=== PATIENT | female | born 1990 | race Caucasian/White ===

== ENCOUNTER 2018-05-03 16:48 | Inpatient (IN) | payer MEDICAID ==
[2018-05-03] MEDS ORDERED: Metoclopramide 10 MG/2 ML SDV IVPUSH ONE (16:59)
[2018-05-03] MEDS ORDERED: Citric Acid/Sodium Citrate Solution 30 ML Cup PO ONE (16:59)
[2018-05-03] MEDS ORDERED: Sodium Chloride 0.9% 10 ML Syringe FLUSH PRN (16:59)
[2018-05-03] MEDS ORDERED: ceFAZolin 2 GM in Premix Bag 1 BAG IV ONE (16:59)
[2018-05-03] MEDS ORDERED: Nalbuphine 20 MG/ML 1 ML Syringe IVPUSH PRN (16:59)
[2018-05-03] MEDS ORDERED: Oxytocin/Lactated Ringers 10 UNIT/1,000 ML BAG IV SCH (17:00)
[2018-05-03] MEDS ORDERED: Lactated Ringers 1,000 ML IV SCH (17:00)
--- NOTE | 2018-05-03 17:46 | PCM.PREANE ---
Preanesthetic Assessment - Anesthesia/Transfusion/Family Hx Anesthesia History: Prior Anesthesia Without Reaction Family History of Anesthesia Reaction: No Transfusion History: No Prior Transfusion(s) Intubation History: Unknown - Review of Systems General: No Symptoms Pulmonary: No Symptoms Cardiovascular: No Symptoms Gastrointestinal: No Symptoms Neurological: No Symptoms Other: Reports: None - Physical Assessment NPO Status Date: 05/03/18 NPO Status Time: 12:00 Pulse: 89 O2 Sat by Pulse Oximetry: 98 Respiratory Rate: 14 Blood Pressure: 114/73 Temperature: 37.3 C Vital Signs: Last Vital Signs Temp 37.3 C 05/03/18 16:59 Pulse 89 05/03/18 16:59 Resp 14 05/03/18 16:59 BP 114/73 05/03/18 16:59 Pulse Ox 98 05/03/18 16:59 Height: 1.6 m Weight: 65.317 kg ASA Class: 2E Mental Status: Alert & Oriented x3 Airway Class: Mallampati = 2 Dentition: Reports: Normal Dentition, Caries Thyro-Mental Finger Breadths: 3 Mouth Opening Finger Breadths: 3 ROM/Head Extension: Full Lungs: Clear to Auscultation, Normal Respiratory Effort Cardiovascular: Regular Rate, Regular Rhythm, No Murmurs - Lab Values: Laboratory Last Values WBC 8.32 K/mm3 (3.98-10.04) 05/03/18 17:21 RBC 4.32 M/mm3 (3.98-5.22) 05/03/18 17:21 Hgb 11.7 gm/L (11.2-15.7) 05/03/18 17:21 Hct 35.7 % (34.1-44.9) 05/03/18 17:21 MCV 82.6 fl (79.4-94.8) 05/03/18 17:21 MCH 27.1 pg (25.6-32.2) 05/03/18 17:21 MCHC 32.8 g/dl (32.2-35.5) 05/03/18 17:21 RDW Std Deviation 39.3 fL (36.4-46.3) 05/03/18 17:21 Plt Count 208 K/mm3 (182-369) 05/03/18 17:21 MPV 11.9 fl (9.4-12.3) 05/03/18 17:21 Neut % (Auto) 55.1 % (34.0-71.1) 05/03/18 17:21 Lymph % (Auto) 36.1 % (19.3-51.7) 05/03/18 17:21 [place] % (Auto) 8.1 % (4.7-12.5) 05/03/18 17:21 Eos % (Auto) 0.5 (0.7-5.8) L 05/03/18 17:21 Baso % (Auto) 0.1 % (0.1-1.2) 05/03/18 17:21 Neut # (Auto) 4.59 K/mm3 (1.56-6.13) 05/03/18 17:21 Lymph # (Auto) 3.00 K/mm3 (1.18-3.74) 05/03/18 17:21 [place] # (Auto) 0.67 K/mm3 (0.24-0.36) H 05/03/18 17:21 Eos # (Auto) 0.04 K/mm3 (0.04-0.36) 05/03/18 17:21 Baso # (Auto) 0.01 K/mm3 (0.01-0.08) 05/03/18 17:21 Above labs reviewed and noted and within acceptable ranges to proceed with c section. 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: - SUBSTANCE USE Smoking Status *Q: Never Smoker Second Hand Smoke Exposure: No Recreational Drug Use History: No - HOME MEDS Home Medications: Home Meds PNV95/Ferrous Fumarate/FA [ Multivitamins] 1 each PO DAILY 04/26/15 [ History] - CURRENT (IN HOUSE) MEDS Current Meds: Current Medications Lactated Ringer's (Ringers, Lactated) 1,000 mls @ 125 mls/hr IV ASDIRECTED [facility]ITA Last Admin: 05/03/18 17:21 Dose: 125 mls/hr Oxytocin/Lactated Ringer's (Pitocin In Lr 10 Units/1,000 Ml) 10 unit in 1,000 mls @ 100 mls/hr IV ASDIRECTED [facility] Nalbuphine HCl (Nubain) 10 mg IVPUSH Q2H PRN PRN Reason: pain Sodium Chloride (Saline Flush) 10 ml FLUSH ASDIRECTED PRN PRN Reason: Keep Vein Open Discontinued Medications Citric Acid/Sodium Citrate (Bicitra Solution) 30 ml PO ONETIME ONE Stop: 05/03/18 17:00 Cefazolin Sodium/Dextrose 2 gm (/ Premix) 50 mls @ 100 mls/hr IV ONETIME ONE Stop: 05/03/18 17:28 Metoclopramide HCl (Reglan) 10 mg IVPUSH ONETIME ONE Stop: 05/03/18 17:00
--- NOTE | 2018-05-03 17:55 | PCM.LDHP ---
L&D History of Present Illness - General Date of Service: 05/03/18 Admit Problem/Dx: Patient Status Order with Admit Dx/Problem 05/03/18 16:59 Patient Status [ADT] Routine Admission Diagnosis/Problem Admission Diagnosis/Problem Source of Information: Patient History Limitations: Reports: No Limitations - History of Present Illness Introduction:: 27 y/o at 38 0/7 wks presents for for IUGR. Was seen in clinic today with US for low fundal height. This showed a baby with overall EFW at 14%, but AC at the 9%. Given this finding recommendations were to proceed with delivery. She elected for RLTCS. She is otherwise doing well. 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: : 2 Para: 1 LMP (Approximate): - Past Surgical History Female Surgical History: Reports: Section Social & Family History - Family History Family Medical History: Noncontributory - Tobacco Use Smoking Status *Q: Never Smoker Second Hand Smoke Exposure: No - Caffeine Use Caffeine Use: Reports: Coffee Other Caffeine Use: daily - Alcohol Use Alcohol Use History: No - Recreational Drug Use Recreational Drug Use: No - Living Situation & Occupation Living situation: Reports: H&P Review of Systems - Review of Systems: Review Of Systems: See Below General: Reports: No Symptoms Pulmonary: Reports: No Symptoms Cardiovascular: Reports: No Symptoms Gastrointestinal: Reports: No Symptoms Genitourinary: Reports: No Symptoms Musculoskeletal: Reports: No Symptoms Psychiatric: Reports: No Symptoms L&D Exam - Exam Exam: See Below - Vital Signs Vital Signs: Last Vital Signs Temp 37.3 C 05/03/18 17:46 Pulse 89 05/03/18 17:46 Resp 14 05/03/18 17:46 BP 114/73 05/03/18 17:46 Pulse Ox 98 05/03/18 17:46 Weight: 65.317 kg - OB Specific Contraction Intensity: Irritability Movement: Active Heart Tones: Present Heart Tones per Min: 125 Heart Rate (FHR) Variability: Moderate (6-25 bmp) Presentation: Vertex - Toth Score Toth Score Cervix Position: Midposition Toth Score Consistency: Soft Toth Score Effacement: 51-70% Toth Score Dilation: 1-2 cm Toth Score Infant's Station: -2 Toth Score Total: 7 - Exam General: Alert, Oriented, Cooperative Lungs: Clear to Auscultation, Normal Respiratory Effort Cardiovascular: Regular Rate, Regular Rhythm GI/Abdominal Exam: Soft, Non-Tender Genitourinary: Normal external exam Extremities: Normal Inspection Skin: Warm, Dry, Intact - Patient Data Lab Results Last 24 hrs: Laboratory Results - last 24 hr 05/03/18 Range/Units 17:21 WBC 8.32 (3.98-10.04) K/mm3 RBC 4.32 (3.98-5.22) M/mm3 Hgb 11.7 (11.2-15.7) gm/L Hct 35.7 (34.1-44.9) % MCV 82.6 (79.4-94.8) fl MCH 27.1 (25.6-32.2) pg MCHC 32.8 (32.2-35.5) g/dl RDW Std Deviation 39.3 (36.4-46.3) fL Plt Count 208 (182-369) K/mm3 MPV 11.9 (9.4-12.3) fl Neut % (Auto) 55.1 (34.0-71.1) % Lymph % (Auto) 36.1 (19.3-51.7) % [place] % (Auto) 8.1 (4.7-12.5) % Eos % (Auto) 0.5 L (0.7-5.8) Baso % (Auto) 0.1 (0.1-1.2) % Neut # (Auto) 4.59 (1.56-6.13) K/mm3 Lymph # (Auto) 3.00 (1.18-3.74) K/mm3 [place] # (Auto) 0.67 H (0.24-0.36) K/mm3 Eos # (Auto) 0.04 (0.04-0.36) K/mm3 Baso # (Auto) 0.01 (0.01-0.08) K/mm3 Result Diagrams: 05/03/18 17:21 - Problem List (1) 38 weeks gestation of SNOMED Code(s): 16157628 ICD Code: Z3A.38 - 38 WEEKS GESTATION OF Status: Acute Current Visit: Yes (2) History of SNOMED Code(s): 918908478 ICD Code: Z98.891 - HISTORY OF UTERINE SCAR FROM PREVIOUS SURGERY Status: Acute Current Visit: Yes (3) Rh negative state in antepartum period SNOMED Code(s): 505064603 ICD Code: O09.899 - SUPERVISION OF OTHER HIGH RISK PREGNANCIES, UNSP TRIMESTER; Z67.91 - UNSPECIFIED BLOOD TYPE, RH NEGATIVE Status: Acute Current Visit: Yes (4) IUGR (intrauterine growth restriction) SNOMED Code(s): 98034047 ICD Code: RJA0962 - Status: Acute Current Visit: Yes Problem List Initiated/Reviewed/Updated: Yes Orders Last 24hrs: Active Orders 24 hr Category Date Time Status Patient Status [ADT] Routine ADT 05/03/18 16:59 Active Communication Order [RC] ROUTINE Care 05/03/18 16:59 Active Heart Tones [RC] PER UNIT ROUTINE Care 05/03/18 16:59 Active Non Stress Test [RC] PER UNIT ROUTINE Care 05/03/18 16:59 Active Peripheral IV Care [RC] . DIRECTED Care 05/03/18 17:00 Active Procedure Site Prep Instruct [RC] ASDIRECTED Care 05/03/18 16:59 Active Verify Patient Consent Obtain [RC] PER UNIT ROUTINE Care 05/03/18 16:59 Active Vital Signs [RC] PFP Care 05/03/18 16:59 Active RAPID PLASMA REAGIN,RPR [CHEM] Routine Lab 05/03/18 17:21 Received TYPE AND SCREEN [BBK] Stat Lab 05/03/18 17:21 Received Lactated Ringers [Ringers, Lactated] 1,000 ml Med 05/03/18 17:00 Active IV ASDIRECTED Nalbuphine [Nubain] Med 05/03/18 16:59 Active 10 mg IVPUSH Q2H PRN Oxytocin/Lactated Ringers [Pitocin in LR 10 Units/1,000 Med 05/03/18 17:00 Active ML] 10 unit in 1,000 ml IV ASDIRECTED Sodium Chloride 0.9% [Saline Flush] Med 05/03/18 16:59 Active 10 ml FLUSH ASDIRECTED PRN Peripheral IV Insertion Adult [OM.PC] Routine Oth 05/03/18 16:59 Ordered Schedule Procedure [COMM] Per Unit Routine Oth 05/03/18 16:59 Ordered Schedule Procedure [COMM] Routine Ot 05/03/18 17:47 Ordered Resuscitation Status Routine Resus Stat 05/03/18 16:59 Ordered Medication Orders Lactated Ringer's (Ringers, Lactated) 1,000 mls @ 125 mls/hr IV ASDIRECTED [facility] Last Admin: 05/03/18 17:21 Dose: 125 mls/hr Oxytocin/Lactated Ringer's (Pitocin In Lr 10 Units/1,000 Ml) 10 unit in 1,000 mls @ 100 mls/hr IV ASDIRECTED [facility] Nalbuphine HCl (Nubain) 10 mg IVPUSH Q2H PRN PRN Reason: pain Sodium Chloride (Saline Flush) 10 ml FLUSH ASDIRECTED PRN PRN Reason: Keep Vein Open Assessment/Plan Comment:: 27 y/o at 38 0/7 wks who presents for RLTCS after new diagnosis of IUGR * Labs to be done * Joana MARIE * Consent reviewed and signed * Pediatric and anesthesia made aware
[2018-05-03] MEDS ORDERED: Lactated Ringers 2,000 ML ONE (17:59)
[2018-05-03] MEDS ORDERED: Ondansetron 4 MG/2 ML SDV ONE (17:59)
[2018-05-03] MEDS ORDERED: Lidocaine 1% 4 ML ONE (17:59)
[2018-05-03] MEDS ORDERED: ceFAZolin 1 GM Vial ONE (17:59)
[2018-05-03] MEDS ORDERED: Oxytocin 10 Units/1 ML SDV ONE (17:59)
[2018-05-03] MEDS ORDERED: Ketorolac 30 MG/ML SDV ONE (17:59)
[2018-05-03] MEDS ORDERED: Phenylephrine 1% 10 MG/ML SDV ONE (17:59)
[2018-05-03] MEDS ORDERED: Bupivacaine 0.75%/D5W 2 ML Amp ONE (17:59)
[2018-05-03] MEDS ORDERED: Morphine PF 10 MG/10 ML SDV ONE (17:59)
[2018-05-03] MEDS ORDERED: Meperidine 50 MG/ML Vial IVPUSH PRN (19:12)
[2018-05-03] MEDS ORDERED: diphenhydrAMINE 50 MG/ML SDV IVPUSH PRN ×2 (19:12→21:24)
[2018-05-03] MEDS ORDERED: Ondansetron 4 MG/2 ML SDV IVPUSH PRN (19:12)
[2018-05-03] MEDS ORDERED: ePHEDrine 50 MG/ML SDV IVPUSH PRN (19:12)
[2018-05-03] MEDS ORDERED: fentaNYL 100 MCG/2 ML SDV IVPUSH PRN (19:12)
[2018-05-03] MEDS ORDERED: HYDROmorphone 0.5 MG/0.5 ML Syringe IVPUSH PRN (19:13)
[2018-05-03] MEDS ORDERED: Phenylephrine 1 MG in Sodium Chloride 0.9% 10 ML IV SCH (19:15)
[2018-05-03] MEDS ORDERED: ePHEDrine/Normal Saline 25 MG/5 ML Syringe ONE (19:40)
--- NOTE | 2018-05-03 20:08 | PCM.POSTAN ---
POST ANESTHESIA ASSESSMENT - MENTAL STATUS Mental Status: Alert - VITAL SIGNS Pulse Rate: 62 SaO2: 98 Resp Rate: 18 Blood Pressure: 108/60 Temperature: 36.3 C - RESPIRATORY Respiratory Status: Respiratory Rate WNL, Airway Patent, O2 Saturation Stable - CARDIOVASCULAR CV Status: Pulse Rate WNL, Blood Pressure Stable - GASTROINTESTINAL GI Status: No Symptoms - POST OP HYDRATION Hydration Status: Adequate & Stable
--- NOTE | 2018-05-03 20:08 | PCM.OPNOTE ---
- General Post-Op/Procedure Note Date of Surgery/Procedure: 05/03/18 Operative Procedure(s): Repeat low transverse Findings: Moderate scar tissue between the rectus and the fascia. Small amount of scar tissue between the bladder and RICH. Normal appearance of the uterus, fallopian tubes, and ovaries. Baby girl in a vertex presentation with APGARS of 8 & 9 and weight of 5 lbs 7 oz. Pre Op Diagnosis: 38 weeks of gestation. History of . Concerns for IUGR on ultrasound Post-Op Diagnosis: Same Anesthesia Technique: Spinal Primary Surgeon: Halie Webb Secondary Surgeon: Magalie Abebe Anesthesia Provider: Annalise Olson Reason Plant Director Was Necessary: Speed, safety of case Pathology: Cord blood collected. Placenta discarded Fluid Replacement, Intraop: 1,200 Output, Urine Amount: 100 EBL in mLs: 700 Complications: None Condition: Good Free Text/Narrative:: The risks, benefits, indications, potential complications, and alternatives were explained to the patient and informed consent obtained. After induction of anesthesia, the patient was placed in a supine position and then draped and prepped in the usual sterile manner. A Pfannenstiel incision was made and carried down through the subcutaneous tissue to the fascia. Fascial incision was made and extended transversely. The fascia was from the underlying rectus tissue superiorly and inferiorly. The peritoneum was identified and entered. Peritoneal incision was extended longitudinally. The utero-vesical peritoneal reflection was incised transversely and the bladder flap was bluntly freed from the lower uterine segment. A low transverse uterine incision was made sharply with a scalpel and extended bluntly in a cephalocaudad direction. A baby girl was delivered from a vertex presentation with APGARS as above. After the umbilical cord was clamped and cut cord blood was obtained for evaluation. The placenta was removed intact and appeared normal. The uterus was exteriorized and cleared of clots. The uterine outline, tubes and ovaries appeared normal. The uterine incision was closed with running locked sutures of 0 Vicryl. Hemostasis was obtained with a second imbricating layer of 0 vicryl. The uterus was then placed back into the abdomen. The infracolic gutters were cleared of blood clots. The fascia was then reapproximated with running sutures of 0 Vicryl. The sucutaneous tissue was irrigated with sterile warm normal saline, hemostasis obtained with cautery. This layer was also closed with a running 0 vicryl suture. The skin was reapproximated with running Subcuticular 4-0 monocryl sutures. Instrument, sponge, and needle counts were correct prior the abdominal closure and at the conclusion of the case.
[2018-05-03] MEDS ORDERED: Ondansetron 4 MG/2 ML SDV IV PRN (21:24)
[2018-05-03] MEDS ORDERED: Lanolin 100% Cream 7 GM Tube TOP PRN (21:24)
[2018-05-03] MEDS ORDERED: Dextrose 5%-Lactated Ringers 1,000 ML IV SCH (21:24)
[2018-05-03] MEDS ORDERED: Docusate Sodium 100 MG Cap PO PRN (21:24)
[2018-05-04] MEDS: Ketorolac 30 MG/ML SDV IVPUSH SCH ×3 (01:29→13:23)
--- NOTE | 2018-05-04 06:49 | PCM.PNPP ---
- General Info Date of Service: 05/04/18 Functional Status: Reports: Pain Controlled, Tolerating Diet, Ambulating, Urinating - Review of Systems General: Reports: No Symptoms Cardiovascular: Reports: No Symptoms Gastrointestinal: Reports: No Symptoms Genitourinary: Reports: No Symptoms Musculoskeletal: Reports: No Symptoms - Patient Data Vital Signs - Most Recent: Last Vital Signs Temp 36.6 C 05/04/18 03:39 Pulse 63 05/04/18 03:39 Resp 14 05/04/18 06:40 BP 120/62 05/04/18 03:39 Pulse Ox 99 05/04/18 06:40 Weight - Most Recent: 65.317 kg I&O - Last 24 Hours: Intake & Output 05/03/18 05/03/18 05/04/18 14:59 22:59 06:59 Intake Total 5525 1000 Output Total 300 850 Balance 5225 150 Lab Results - Last 24 Hours: Laboratory Results - last 24 hr 05/03/18 05/03/18 Range/Units 17:21 17:21 WBC 8.32 (3.98-10.04) K/mm3 RBC 4.32 (3.98-5.22) M/mm3 Hgb 11.7 (11.2-15.7) gm/L Hct 35.7 (34.1-44.9) % MCV 82.6 (79.4-94.8) fl MCH 27.1 (25.6-32.2) pg MCHC 32.8 (32.2-35.5) g/dl RDW Std Deviation 39.3 (36.4-46.3) fL Plt Count 208 (182-369) K/mm3 MPV 11.9 (9.4-12.3) fl Neut % (Auto) 55.1 (34.0-71.1) % Lymph % (Auto) 36.1 (19.3-51.7) % [place] % (Auto) 8.1 (4.7-12.5) % Eos % (Auto) 0.5 L (0.7-5.8) Baso % (Auto) 0.1 (0.1-1.2) % Neut # (Auto) 4.59 (1.56-6.13) K/mm3 Lymph # (Auto) 3.00 (1.18-3.74) K/mm3 [place] # (Auto) 0.67 H (0.24-0.36) K/mm3 Eos # (Auto) 0.04 (0.04-0.36) K/mm3 Baso # (Auto) 0.01 (0.01-0.08) K/mm3 Blood Type A NEGATIVE Gel Antibody Screen Positive Med Orders - Current: Current Medications Diphenhydramine HCl (Benadryl) 25 mg IVPUSH Q6H PRN PRN Reason: pruritis Last Admin: 05/03/18 22:28 Dose: 25 mg Diphenhydramine HCl (Benadryl) 25 mg IVPUSH Q6H PRN PRN Reason: Itching or Nausea Docusate Sodium (Colace) 100 mg PO Q12H PRN PRN Reason: Constipation Emollient Ointment (Lansinoh Hpa) 0 gm TOP ASDIRECTED PRN PRN Reason: Sore Nipples Ephedrine Sulfate (Ephedrine Sulfate) 5 mg IVPUSH ASDIRECTED PRN PRN Reason: Hypotension Fentanyl (Sublimaze) 50 mcg IVPUSH Q5M PRN PRN Reason: Pain Hydromorphone HCl (Dilaudid) 0.5 mg IVPUSH ONETIME PRN PRN Reason: Pain Phenylephrine HCl 1 mg/ Sodium (Chloride) 10.1 mls @ 1 mls/sec IV TITRATE MARQUITA; Protocol Ibuprofen (Motrin) 600 mg PO Q6H PRN PRN Reason: mild pain or fever Ketorolac Tromethamine (Toradol) 30 mg IVPUSH Q6H [facility] Stop: 05/04/18 13:31 Last Admin: 05/04/18 01:29 Dose: 30 mg Meperidine HCl (Meperidine) 12.5 mg IVPUSH ONETIME PRN PRN Reason: shivering Ondansetron HCl (Zofran) 4 mg IVPUSH ONETIME PRN PRN Reason: Nausea/Vomiting Ondansetron HCl (Zofran) 4 mg IV Q8H PRN PRN Reason: Nausea/Vomiting Oxycodone/Acetaminophen (Percocet 325-5 Mg) 2 tab PO Q4H PRN PRN Reason: Pain (moderate 4-6) Discontinued Medications Citric Acid/Sodium Citrate (Bicitra Solution) 30 ml PO ONETIME ONE Stop: 05/03/18 17:00 Last Admin: 05/03/18 18:20 Dose: 30 ml Cefazolin Sodium/Dextrose 2 gm (/ Premix) 50 mls @ 100 mls/hr IV ONETIME ONE Stop: 05/03/18 17:28 Last Admin: 05/03/18 22:07 Dose: Not Given Lactated Ringer's (Ringers, Lactated) 1,000 mls @ 125 mls/hr IV ASDIRECTED [facility] Last Admin: 05/03/18 17:21 Dose: 125 mls/hr Oxytocin/Lactated Ringer's (Pitocin In Lr 10 Units/1,000 Ml) 10 unit in 1,000 mls @ 100 mls/hr IV ASDIRECTED [facility] Dextrose/Lactated Ringer's (Dextrose 5%-Lactated Ringers) 1,000 mls @ 125 mls/ hr IV ASDIRECTED [facility] Stop: 05/04/18 05:23 Last Admin: 05/03/18 21:36 Dose: 125 mls/hr Metoclopramide HCl (Reglan) 10 mg IVPUSH ONETIME ONE Stop: 05/03/18 17:00 Last Admin: 05/03/18 18:20 Dose: 10 mg Nalbuphine HCl (Nubain) 10 mg IVPUSH Q2H PRN PRN Reason: pain Sodium Chloride (Saline Flush) 10 ml FLUSH ASDIRECTED PRN PRN Reason: Keep Vein Open - Infant Interaction Infant Disposition, : in Room with Family Infant Interaction: Holding Feeding: Breastfed Infant; Nursed Well Support Person: - Recovery Exam Fundal Tone: Firm Fundal Level: 2 Fingerbreadths Below Umbilicus Fundal Placement: Midline Lochia Amount: Scant Lochia Color: Rubra/Red Perineum Description: Intact, Minimal Bruising/Swelling Episiotomy/Laceration: None Bladder Status: Indwelling Catheter in Place Urinary Elimination: Indwelling Catheter - Exam General: Alert, Oriented, Cooperative Lungs: Clear to Auscultation, Normal Respiratory Effort Cardiovascular: Regular Rate, Regular Rhythm GI/Abdominal Exam: Soft, Non-Tender Extremities: Normal Inspection Skin: Warm, Dry, Intact - Problem List & Annotations (1) 38 weeks gestation of SNOMED Code(s): 81299409 Code(s): Z3A.38 - 38 WEEKS GESTATION OF Status: Acute Current Visit: Yes (2) History of SNOMED Code(s): 342618325 Code(s): Z98.891 - HISTORY OF UTERINE SCAR FROM PREVIOUS SURGERY Status: Acute Current Visit: Yes (3) Rh negative state in antepartum period SNOMED Code(s): 586918984 Code(s): O09.899 - SUPERVISION OF OTHER HIGH RISK PREGNANCIES, UNSP TRIMESTER ; Z67.91 - UNSPECIFIED BLOOD TYPE, RH NEGATIVE Status: Acute Current Visit: Yes (4) IUGR (intrauterine growth restriction) SNOMED Code(s): 16081002 Code(s): VFT4238 - Status: Acute Current Visit: Yes - Problem List Review Problem List Initiated/Reviewed/Updated: Yes - My Orders Last 24 Hours: My Active Orders 05/03/18 16:59 Heart Tones [RC] PER UNIT ROUTINE Resuscitation Status Routine 05/03/18 17:21 ANTIBODY IDENTIFICATION [BBK] Stat RAPID PLASMA REAGIN,RPR [CHEM] Routine TYPE AND SCREEN [BBK] Stat 05/03/18 21:24 Activity as Tolerated [RC] .Routine Communication Order [RC] PER UNIT ROUTINE Communication Order [RC] PER UNIT ROUTINE Communication Order [RC] PER UNIT ROUTINE Intake and Output [RC] Q4H May Shower [RC] PER UNIT ROUTINE Notify Provider Intake and Out [RC] ASDIRECTED RT Incentive Spirometry [RC] Q2HWA Acetaminophen/oxyCODONE [Percocet 325-5 MG] 2 tab PO Q4H PRN Docusate Sodium [Colace] 100 mg PO Q12H PRN Lanolin [Lansinoh HPA] See Dose Instructions TOP ASDIRECTED PRN Ondansetron [Zofran] 4 mg IV Q8H PRN diphenhydrAMINE [Benadryl] 25 mg IVPUSH Q6H PRN Assess Lochia [WOMSER] Per Unit Routine Assess Uterine Involution [WOMSER] Per Unit Routine Breast Pump [WOMSER] Per Unit Routine Heat Therapy [OM.PC] Per Unit Routine Peripheral IV Discontinue [OM.PC] Routine Sequential Compression Device [OM.PC] Per Unit Routine 05/03/18 Dinner Regular Diet [DIET] 05/04/18 01:30 Ketorolac [Toradol] 30 mg IVPUSH Q6H 05/04/18 05:11 CBC W/O DIFF,HEMOGRAM [HEME] AM 05/04/18 19:30 Ibuprofen [Motrin] 600 mg PO Q6H PRN 05/04/18 20:04 Urinary Catheter Removal [RC] Per Unit Routine - Assessment Assessment:: POD#1 from RLTCS - Plan Plan:: RLTCS * Routine cares * Encourage breast feeding * blood type pending, will see if requires Rhogam * Discharge home in 1-2 days
[2018-05-04] MEDS: Acetaminophen/oxyCODONE 325-5 MG Tab PO PRN ×2 (14:29→19:48)
[2018-05-04] MEDS ORDERED: Ibuprofen 600 MG Tab PO PRN (19:30)
[2018-05-05] MEDS: Acetaminophen/oxyCODONE 325-5 MG Tab PO PRN ×3 (00:40→09:41)
--- NOTE | 2018-05-05 07:41 | PCM.PNPP ---
- General Info Date of Service: 05/05/18 Functional Status: Reports: Pain Controlled - Review of Systems General: Reports: No Symptoms HEENT: Reports: No Symptoms Pulmonary: Reports: No Symptoms Cardiovascular: Reports: No Symptoms Gastrointestinal: Reports: No Symptoms Genitourinary: Reports: No Symptoms Musculoskeletal: Reports: No Symptoms Skin: Reports: No Symptoms Neurological: Reports: No Symptoms Psychiatric: Reports: No Symptoms - General Info Date of Service: 05/05/18 - Patient Data Vital Signs - Most Recent: Last Vital Signs Temp 36.7 C 05/05/18 04:01 Pulse 52 L 05/05/18 04:01 Resp 16 05/05/18 04:01 BP 114/67 05/05/18 04:01 Pulse Ox 98 05/05/18 04:01 Weight - Most Recent: 65.317 kg I&O - Last 24 Hours: Intake & Output 05/04/18 05/05/18 05/05/18 22:59 06:59 14:59 Output Total 1550 Balance -1550 Med Orders - Current: Current Medications Diphenhydramine HCl (Benadryl) 25 mg IVPUSH Q6H PRN PRN Reason: pruritis Last Admin: 05/03/18 22:28 Dose: 25 mg Diphenhydramine HCl (Benadryl) 25 mg IVPUSH Q6H PRN PRN Reason: Itching or Nausea Docusate Sodium (Colace) 100 mg PO Q12H PRN PRN Reason: Constipation Emollient Ointment (Lansinoh Hpa) 0 gm TOP ASDIRECTED PRN PRN Reason: Sore Nipples Ephedrine Sulfate (Ephedrine Sulfate) 5 mg IVPUSH ASDIRECTED PRN PRN Reason: Hypotension Fentanyl (Sublimaze) 50 mcg IVPUSH Q5M PRN PRN Reason: Pain Hydromorphone HCl (Dilaudid) 0.5 mg IVPUSH ONETIME PRN PRN Reason: Pain Phenylephrine HCl 1 mg/ Sodium (Chloride) 10.1 mls @ 1 mls/sec IV TITRATE MARQUITA; Protocol Ibuprofen (Motrin) 600 mg PO Q6H PRN PRN Reason: mild pain or fever Last Admin: 05/04/18 23:13 Dose: 600 mg Meperidine HCl (Meperidine) 12.5 mg IVPUSH ONETIME PRN PRN Reason: shivering Ondansetron HCl (Zofran) 4 mg IVPUSH ONETIME PRN PRN Reason: Nausea/Vomiting Ondansetron HCl (Zofran) 4 mg IV Q8H PRN PRN Reason: Nausea/Vomiting Oxycodone/Acetaminophen (Percocet 325-5 Mg) 2 tab PO Q4H PRN PRN Reason: Pain (moderate 4-6) Last Admin: 05/05/18 04:58 Dose: 2 tab Discontinued Medications Citric Acid/Sodium Citrate (Bicitra Solution) 30 ml PO ONETIME ONE Stop: 05/03/18 17:00 Last Admin: 05/03/18 18:20 Dose: 30 ml Cefazolin Sodium/Dextrose 2 gm (/ Premix) 50 mls @ 100 mls/hr IV ONETIME ONE Stop: 05/03/18 17:28 Last Admin: 05/03/18 22:07 Dose: Not Given Lactated Ringer's (Ringers, Lactated) 1,000 mls @ 125 mls/hr IV ASDIRECTED [facility] Last Admin: 05/03/18 17:21 Dose: 125 mls/hr Oxytocin/Lactated Ringer's (Pitocin In Lr 10 Units/1,000 Ml) 10 unit in 1,000 mls @ 100 mls/hr IV ASDIRECTED [facility] Dextrose/Lactated Ringer's (Dextrose 5%-Lactated Ringers) 1,000 mls @ 125 mls/ hr IV ASDIRECTED [facility] Stop: 05/04/18 05:23 Last Admin: 05/03/18 21:36 Dose: 125 mls/hr Ketorolac Tromethamine (Toradol) 30 mg IVPUSH Q6H [facility] Stop: 05/04/18 13:31 Last Admin: 05/04/18 13:23 Dose: 30 mg Metoclopramide HCl (Reglan) 10 mg IVPUSH ONETIME ONE Stop: 05/03/18 17:00 Last Admin: 05/03/18 18:20 Dose: 10 mg Nalbuphine HCl (Nubain) 10 mg IVPUSH Q2H PRN PRN Reason: pain Sodium Chloride (Saline Flush) 10 ml FLUSH ASDIRECTED PRN PRN Reason: Keep Vein Open - Infant Interaction Disposition, : [place] in Room with Family Infant Interaction: Holding Infant Feeding: Breastfed Infant; Nursed Well Support Person: - Recovery Exam Fundal Tone: Firm Fundal Level: 2 Fingerbreadths Below Umbilicus Fundal Placement: Midline Lochia Amount: Small Lochia Color: Rubra/Red Perineum Description: Intact, Minimal Bruising/Swelling Episiotomy/Laceration: None Bladder Status: Voiding Urinary Elimination: Voided - Exam General: Alert, Oriented HEENT: Pupils Equal Neck: Supple Lungs: Clear to Auscultation, Normal Respiratory Effort Cardiovascular: Regular Rate, Regular Rhythm GI/Abdominal Exam: Normal Bowel Sounds, Soft, Non-Tender, No Organomegaly, No Distention, No Abnormal Bruit, No Mass, Pelvis Stable Extremities: Normal Inspection, Normal Range of Motion, Non-Tender, No Pedal Edema, Normal Capillary Refill Skin: Warm, Dry, Intact Wound/Incisions: Healing Well Neurological: No New Focal Deficit Psy/Mental Status: Alert, Normal Affect, Normal Mood - Problem List Review Problem List Initiated/Reviewed/Updated: Yes - Assessment Assessment:: POD#2 from [facility] - Plan Plan:: [facility] * Routine cares * Encourage breast feeding * blood type A neg * Discharge home in 1 day
[2018-05-05 10:44] VITALS: BP 113/72
--- NOTE | 2018-05-06 18:57 | PCM48HPAN ---
Post Anesthesia Note - EVALUATION WITHIN 48HRS OF ANESTHETIC Vital Signs in Normal Range: Yes Patient Participated in Evaluation: Yes Respiratory Function Stable: Yes Airway Patent: Yes Cardiovascular Function Stable: Yes Hydration Status Stable: Yes Pain Control Satisfactory: Yes Nausea and Vomiting Control Satisfactory: Yes Mental Status Recovered: Yes - COMMENTS/OBSERVATIONS Free Text/Narrative:: Spoke with Dr. Melendez and nursing staff. No complications noted. Patient discharged home.
== END 2018-05-05 11:35 | disposition home or self-care (01) | DRG 766 ==
LOC: JD.OB 16:48
PROVIDERS: ADMIT Obstetrics & Gynecology; ATTEND Obstetrics & Gynecology
PROC: 6A550ZT Pheresis of Cord Blood Stem Cells, Single (ICD-10-PCS; principal; 2018-05-03)
PROC: 10D00Z1 Extraction of Products of Conception, Low, Open Approach (ICD-10-PCS; principal; 2018-05-03)
DX: O36.5930 Maternal care for other known or suspected poor fetal growth, third trimester, not applicable or unspecified (principal); Z3A.38 38 weeks gestation of pregnancy; Z37.0 Single live birth; O34.211 Maternal care for low transverse scar from previous cesarean delivery; N85.8 Other specified noninflammatory disorders of uterus
CPT/HCPCS: 36415; 59025; 85025; 85027; 86592; 86850; 86870; 86900; 86901; 94762; A9270-GY; J0690; J1200; J1885; J2001; J2270; J2370; J2405; J2590; J2765; J7042; J7050; J7120